=== PATIENT | female | born 1950 | race Caucasian/White ===

== ENCOUNTER → 2016-11-18 | Outpatient (CLI) | payer MEDICARE, BC, OTHER ==
--- NOTE | 2016-11-18 11:40 | MM ---
Reason for exam: follow-up at short interval from prior study. Last mammogram was performed 8 months ago. History: Patient is postmenopausal and has history of breast cancer at age 65. Family history of breast cancer in 2 maternal aunts. Malignant US biopsy breast VAD LT of the left breast, March 18, 2016. Reductions of both breasts, 2000. Benign excisional biopsy of the right breast. Physical Findings: Nurse did not find any significant physical abnormalities on exam. MG Diagnostic Mammo w CAD CLINT Bilateral CC and MLO view(s) were taken. XCCL and LM view(s) were taken of the left breast. Prior study comparison: March 18, 2016, left breast MG diagnostic mammo LT wo CAD. March 03, 2016, left breast US breast workup limited LT. March 03, 2016, left breast MG work up mamm w CAD LT. February 25, 2015, bilateral MG screening mammo w CAD. January 12, 2014, bilateral MG screening mammo w CAD. There are scattered fibroglandular densities. Post surgical and post treatment changes in the left breast. These changes can be reassessed in 6 months. No significant new findings when compared with previous films. These results were verbally communicated with the patient and result sheet given to the patient on 11/18/16. ASSESSMENT: Probably benign, BI-RAD 3 RECOMMENDATION: Follow-up diagnostic mammogram of the left breast in 6 months.
== END | disposition home or self-care (01) ==
LOC: RADMAMWWP 08:59
PROVIDERS: ATTEND Radiology Diagnostic Radiology
DX: C50.912 Malignant neoplasm of unspecified site of left female breast (principal)

== ENCOUNTER → 2017-05-26 | Outpatient (CLI) | payer MEDICARE, BC, OTHER ==
--- NOTE | 2017-05-26 10:39 | MM ---
Reason for exam: follow-up at short interval from prior study. Last mammogram was performed 6 months ago. History: Patient is postmenopausal and has history of breast cancer at age 65. Family history of breast cancer in 2 maternal aunts. Radiation therapy of the left breast, May 2016. Lumpectomy of the left breast, April 16, 2016. Malignant US biopsy breast VAD LT of the left breast, March 18, 2016. Reductions of both breasts, 2000. Benign excisional biopsy of the right breast. Taking antineoplastic beginning at age 65. Physical Findings: Nurse did not find any significant physical abnormalities on exam. MG Diagnostic Mammo LT w CAD CC and MLO view(s) were taken of the left breast. Prior study comparison: November 18, 2016, bilateral MG diagnostic mammo w CAD CLINT. March 18, 2016, left breast MG diagnostic mammo LT wo CAD. There are scattered fibroglandular densities. No suspicious abnormality. These results were verbally communicated with the patient and result sheet given to the patient on 05/26/17. ASSESSMENT: Benign, BI-RAD 2 RECOMMENDATION: Follow-up diagnostic mammogram of both breasts in 6 months. Back on schedule.
== END | disposition home or self-care (01) ==
LOC: RADMAMWWP 09:39
PROVIDERS: ATTEND Radiology Diagnostic Radiology
DX: C50.912 Malignant neoplasm of unspecified site of left female breast (principal)

== ENCOUNTER → 2017-12-22 | Outpatient (CLI) | payer MEDICARE, BC, OTHER ==
--- NOTE | 2017-12-22 10:17 | MM ---
Reason for exam: additional evaluation requested from prior study. Last mammogram was performed 7 months ago. History: Patient is postmenopausal and has history of breast cancer at age 65. Family history of breast cancer in 2 maternal aunts. Radiation therapy of the left breast, May 2016. Lumpectomy of the left breast, April 16, 2016. Malignant US biopsy breast VAD LT of the left breast, March 18, 2016. Reductions of both breasts, 2000. Benign excisional biopsy of the right breast. Taking antineoplastic beginning at age 65. Physical Findings: Nurse did not find any significant physical abnormalities on exam. MG 3D Diag Mammo W/Cad CLINT Bilateral CC and MLO view(s) were taken. Prior study comparison: May 26, 2017, left breast MG diagnostic mammo LT w CAD. November 18, 2016, bilateral MG diagnostic mammo w CAD CLINT. There are scattered fibroglandular densities. Stable benign calcifications. Stable post lumpectomy changes in the left breast. No significant new findings when compared with previous films. These results were verbally communicated with the patient and result sheet given to the patient on 12/22/17. ASSESSMENT: Benign, BI-RAD 2 RECOMMENDATION: Follow-up diagnostic mammogram of both breasts in 1 year.
== END | disposition home or self-care (01) ==
LOC: RADMAMWWP 08:52
PROVIDERS: ATTEND Radiology Diagnostic Radiology
DX: C50.912 Malignant neoplasm of unspecified site of left female breast (principal)
CPT/HCPCS: 77066; G0279; 77062

== ENCOUNTER → 2019-03-22 | Outpatient (CLI) | payer MEDICARE, OTHER ==
--- NOTE | 2019-03-22 09:42 | MM ---
Reason for exam: additional evaluation requested from prior study. Last mammogram was performed 1 year and 3 months ago. History: Patient is postmenopausal and has history of breast cancer at age 65. Family history of breast cancer in 2 maternal aunts. Radiation therapy of the left breast, May 2016. Lumpectomy of the left breast, April 16, 2016. Malignant US biopsy breast VAD LT of the left breast, March 18, 2016. Reductions of both breasts, 2000. Benign excisional biopsy of the right breast. Taking antineoplastic beginning at age 65. Physical Findings: Nurse did not find any significant physical abnormalities on exam. MG Diagnostic Mammo w CAD CLINT Bilateral CC and MLO view(s) were taken. Prior study comparison: December 22, 2017, bilateral MG 3d diag mammo w/cad CLINT. May 26, 2017, left breast MG diagnostic mammo LT w CAD. The breast tissue is heterogeneously dense. This may lower the sensitivity of mammography. Benign appearing bilateral calcifications. Post therapy change on the left. These results were verbally communicated with the patient and result sheet given to the patient on 03/22/19. ASSESSMENT: Benign, BI-RAD 2 RECOMMENDATION: Follow-up diagnostic mammogram of both breasts in 1 year.
== END | disposition home or self-care (01) ==
LOC: RADMAMWWP 07:49
PROVIDERS: ATTEND Radiology Diagnostic Radiology
DX: C50.412 Malignant neoplasm of upper-outer quadrant of left female breast (principal)
CPT/HCPCS: 77066

== ENCOUNTER → 2020-03-26 | Outpatient (CLI) | payer MEDICARE, OTHER ==
--- NOTE | 2020-03-26 11:35 | MM ---
Reason for exam: additional evaluation requested from prior study. Last mammogram was performed 1 year ago. History: Patient is postmenopausal and has history of breast cancer at age 65. Family history of breast cancer in 2 maternal aunts at age 60. Radiation therapy of the left breast, May 2016. Lumpectomy of the left breast, April 16, 2016. Malignant US biopsy breast VAD LT of the left breast, March 18, 2016. Reductions of both breasts, 2000. Benign excisional biopsy of the right breast. Taking antineoplastic beginning at age 65. Physical Findings: Nurse did not find any significant physical abnormalities on exam. MG Diagnostic Mammo w CAD CLINT Bilateral CC and MLO view(s) were taken. Prior study comparison: March 22, 2019, bilateral MG diagnostic mammo w CAD CLINT. December 22, 2017, bilateral MG 3d diag mammo w/cad CLINT. There are scattered fibroglandular densities. Finding #1: Architectural distortion in the upper outer quadrant, posterior position of the left breast. Finding #2: There are typically benign round, linear calcifications in both breasts. There is a chronic nodularity in the right breast. There is no discrete abnormality. These results were verbally communicated with the patient and result sheet given to the patient on 03/26/20. ASSESSMENT: Benign, BI-RAD 2 RECOMMENDATION: Follow-up diagnostic mammogram of both breasts in 1 year.
== END | disposition home or self-care (01) ==
LOC: RADMAMWWP 10:15
PROVIDERS: ATTEND Radiology Diagnostic Radiology
DX: C50.412 Malignant neoplasm of upper-outer quadrant of left female breast (principal)
CPT/HCPCS: 77066

== ENCOUNTER → 2021-03-28 | Outpatient (CLI) | payer MEDICARE, OTHER ==
--- NOTE | 2021-03-28 12:15 | MM ---
Reason for exam: additional evaluation requested from prior study. Last mammogram was performed 1 year ago. History: Patient is postmenopausal and has history of breast cancer at age 65. Family history of breast cancer in 2 maternal aunts at age 60. Radiation therapy of the left breast, May 2016. Lumpectomy of the left breast, April 16, 2016. Malignant US biopsy breast VAD LT of the left breast, March 18, 2016. Reductions of both breasts, 1999. Benign excisional biopsy of the right breast. Taking antineoplastic for 5 years beginning at age 65. Physical Findings: Nurse did not find any significant physical abnormalities on exam. MG 3D Diag Mammo W/Cad CLINT Bilateral CC and MLO view(s) were taken. XCCL view(s) were taken of the left breast. Prior study comparison: March 26, 2020, bilateral MG diagnostic mammo w CAD CLINT. March 22, 2019, bilateral MG diagnostic mammo w CAD CLINT. The breast tissue is heterogeneously dense. This may lower the sensitivity of mammography. Stable post operative lumpectomy changes left breast. Mild increase in dystrophic type calcifications. These results were verbally communicated with the patient and result sheet given to the patient on 03/28/21. ASSESSMENT: Benign, BI-RAD 2 RECOMMENDATION: Routine screening mammogram of both breasts in 1 year.
== END | disposition home or self-care (01) ==
LOC: RADMAMWWP 10:31
PROVIDERS: ATTEND Radiology Diagnostic Radiology
DX: R92.1 Mammographic calcification found on diagnostic imaging of breast (principal); Z85.3 Personal history of malignant neoplasm of breast; Z80.3 Family history of malignant neoplasm of breast
CPT/HCPCS: 77066; G0279; 77062